=== PATIENT | female | born 1995 | race Caucasian/White ===

== ENCOUNTER → 2016-11-03 | Outpatient (CLI) | payer BC ==
[2016-11-06 00:33] LABS: CHLAMYDIA TRACH RNA*** NOT DETECTED (NOT DETECTED); GC (NEIS GONORRHOEAE)RNA** NOT DETECTED (NOT DETECTED)
== END | disposition home or self-care (01) ==
LOC: C.LABSPEC 17:36
PROVIDERS: ATTEND Obstetrics & Gynecology
DX: Z11.3 Encounter for screening for infections with a predominantly sexual mode of transmission (principal)

== ENCOUNTER 2017-02-20 16:31 | Emergency (ER) | payer BC ==
[~2017-02-20] VITALS: Ht 165.1 cm; Wt 83.1 kg
[2017-02-20 16:35] VITALS: BP 138/99; TEMP 36.7; Ht 165.1 cm; Wt 83.1 kg
[2017-02-20] MEDS ORDERED: XYLOCAINE 1%/SOD BICARB 20 ML VIAL INFIL STA (16:44)
[2017-02-20] MEDS ORDERED: BUPIVACAINE 0.5 % 5 MG/1 ML MPF 30ML VIAL INFIL STA (16:44)
[2017-02-20] MEDS ORDERED: IBUPROFEN 600 MG TAB PO STA (16:48)
--- NOTE | 2017-02-20 16:48 | EMERGENCY ROOM VISIT NOTE ---
ED Visit Note First contact with patient: 16:41 Chief Complaint: "R middle finger broken" History of Present Illness: This patient is a 22 year old female who presents to the Emergency Department via private vehicle for evaluation of their right third digit deformity and associated laceration. Patient sustained the injury 10 minutes prior to arrival, while at home standing upon stack crates attempting to change a light bulb. She states that the crates fell, she fell the ground striking her right third digit creating a deformity an associated laceration. There is minimal bleeding associated with this. There is slight tingling noted. She at this time requests ibuprofen. Her tetanus is up-to- date. She is right-handed. She denies chance of . She rates the pain as a 3/10. Medications: As noted below Allergies: None PMH: No pertinent SHx: Patient lives locally. ROS: All pertinent positive and negative review of systems are appropriately documented in the History of Present Illness. Physical Exam: VITAL SIGNS - Vital signs and nursing notes were reviewed. Afebrile, blood pressure 130/99, non-tachycardic and is saturating 196%. GENERAL -22-year-old female appearing her stated age who is in no acute distress. Communicates well with provider and answers questions appropriately. SKIN - There is a subcentimeter abrasion/laceration on the volar aspect of the right third PIP joint. The edges gape apart with traction. Upon further examination there are no deep structures including vessel, tendon, or bony structures appreciated. There is no active bleeding noted. MUSCULOSKELETAL - Laceration as described above. +5/5 strength appreciated of the affected digit. There is hyperextension of the location of the right third DIP joint consistent with either dislocation or fracture. NEUROLOGIC - she is neurovascularly intact in this region. VASCULAR - Capillary refill was brisk. IMAGING: RIGHT FINGER(S) MIN 2 VIEWS ROUTINE CLINICAL HISTORY: Right third digit deformity status post fall. COMPARISON: None FINDINGS: There is dorsal dislocation of the middle phalanx of the right third finger with respect to the proximal phalanx. No fracture is identified. No additional abnormalities are identified. IMPRESSION: Right third finger PIP joint dislocation. No fracture. Electronically signed by: Eduin Ho M.D. 02/20/2017 5:52 PM Dictated Date/Time: 02/20/2017 5:51 PM RIGHT FINGER(S) MIN 2 VIEWS ROUTINE CLINICAL HISTORY: 3rd digit views s/p reduction. COMPARISON: Right third finger radiographs performed earlier today. FINDINGS: Alignment of the right third finger is anatomic status post reduction. No fracture is identified. IMPRESSION: Anatomic alignment of the right third finger status post reduction. No fracture. Electronically signed by: Eduin Ho M.D. 02/20/2017 5:58 PM Dictated Date/Time: 02/20/2017 5:57 PM ED Course: Patient was seen and evaluated by myself. She presents to us today with dislocation of her right third digit dorsally. There is associated small ventral laceration. This is superficial and does not extend into the joint. There is no open dislocation. Patient was given 600 mg of ibuprofen. She was anesthetized with a 50-50 ratio of 1% buffered lidocaine and 0.5% bupivacaine. 3 mL's were injected. This was in a digital block fashion. Patient and provided consent to reduce. Finger was reduced without difficulty. Films were obtained before and after. There is anatomic alignment of the finger status post reduction, without fracture. No splint was applied. The wound was cleansed, and dressed with a bacitracin dressing. She is to follow-up with orthopedics regarding her stay. She was educated upon conservative management, educated upon worrisome symptoms which return, had questions or discharge, and was discharged home in good condition. In the evaluation and treatment of this patient, the following differential diagnoses were considered: Finger Fracture, Finger Dislocation, Finger Sprain, Finger Contusion, [place] Finger, or Mallet Finger. Problem List Medical Problems: (1) No Known Active Medical Problems Status: Chronic Current/Historical Medications No Active Prescriptions or Reported Meds Allergies Coded Allergies: No Known Allergies (Unverified , 11/22/13) Vital Signs Date Time Temp Pulse Resp B/P (MAP) Pulse Ox O2 Delivery O2 Flow Rate FiO2 02/20/17 16:35 36.7 63 16 138/99 96 Room Air Medications Administered Medications (Trade) Dose Ordered Sig/Delma Route Start Time Stop Time Status Last Admin Dose Admin Ibuprofen (Motrin Tab) 600 mg NOW STAT PO 02/20/17 16:48 02/20/17 16:49 DC 02/20/17 16:48 600 MG Departure Information Impression Primary Impression: Finger injury Dispostion Home / Self-Care Condition GOOD Prescriptions No Active Prescriptions or Reported Meds Referrals Lorena ColungaP. (PCP) [place]i West D.O. Patient Instructions My [facility] Additional Instructions Discharge Instructions: Please wear the splint for comfort until you see orthopedics. Look for signs of infection of the wound including: increased pain, swelling, foul discharge, streaking, or increased temperature. If any of these are noticed you should return to the Emergency Department for further assessment and treatment. Please call orthopedics, number provided to schedule follow-up first thing Wednesday. As with any injury you may have received nerve damage to the surrounding tissues. This damage may or may not be permanent. You should keep the area covered with sunscreen for the first 6 months to 1 year when at risk for exposure to help minimize scarring. You can also use scar reducing creams or Vitamin E oil to help minimize scarring. For pain control, you can use the following [id number] medicines: - Regular strength (325mg/tab) Tylenol (acetaminophen) 2 tabs every 4-6 hours as needed. Do not exceed 12 tablets in a 24 hour period. Avoid taking more than 3 grams (3000 mg) of Tylenol per day. This includes any other sources of acetaminophen you may take on a regular basis. - Regular strength (200 mg/tab) Advil (ibuprofen) 1-2 tabs every 4-6 hours as needed. Do not exceed a dose of 3200 mg per day. Return to the emergency department if your symptoms worsen despite treatment course outlined above.
--- NOTE | 2017-02-20 17:53 | DIAGNOSTIC IMAGING REPORT ---
RIGHT FINGER(S) MIN 2 VIEWS ROUTINE CLINICAL HISTORY: Right third digit deformity status post fall. COMPARISON: None FINDINGS: There is dorsal dislocation of the middle phalanx of the right third finger with respect to the proximal phalanx. No fracture is identified. No additional abnormalities are identified. IMPRESSION: Right third finger PIP joint dislocation. No fracture. Electronically signed by: Eduin Ho M.D. 02/20/2017 5:52 PM Dictated Date/Time: 02/20/2017 5:51 PM
--- NOTE | 2017-02-20 17:59 | DIAGNOSTIC IMAGING REPORT ---
RIGHT FINGER(S) MIN 2 VIEWS ROUTINE CLINICAL HISTORY: 3rd digit views s/p reduction. COMPARISON: Right third finger radiographs performed earlier today. FINDINGS: Alignment of the right third finger is anatomic status post reduction. No fracture is identified. IMPRESSION: Anatomic alignment of the right third finger status post reduction. No fracture. Electronically signed by: Eduin Ho M.D. 02/20/2017 5:58 PM Dictated Date/Time: 02/20/2017 5:57 PM
[2017-02-20 18:26] VITALS: PULSE 67; O2SAT 98
== END 2017-02-20 18:27 | disposition home or self-care (01) ==
LOC: C.EDB 16:34 → C.EDD 18:27
DX: S63.252A Unspecified dislocation of right middle finger, initial encounter (principal); W17.89XA Other fall from one level to another, initial encounter; Y92.019 Unspecified place in single-family (private) house as the place of occurrence of the external cause; Y93.89 Activity, other specified